=== PATIENT | female | born 1940 | race Caucasian/White ===

== ENCOUNTER 2023-01-22 16:10 | Inpatient (IN) ==
[2023-01-22] MEDS ORDERED: IOPAMIDOL 100 ML BOTTLE IV ONE (16:11)
--- NOTE | 2023-01-22 16:19 | Emergency Department Note ---
HPI General Chief complaint: Stroke Symptoms Stated complaint: possible stroke Time Seen by Provider: 01/22/23 16:19 History of Present Illness HPI Narrative: Narrative: Patient is an 82-year-old female with a past medical history significant for stroke who presents to the emergency department due to concern that she is having a stroke. She states that she began to have tingling last night at 8:30 PM. She woke up this morning with weakness. She states that this weakness was initially just in the left leg, but throughout the day she has begun to develop weakness in the left arm as well. She also endorses change in sensation on the left at this time. She denies any other symptoms at this time. Related Data Home Medications Medication Instructions Recorded Confirmed Lactobacillus acidophilus 10 10,000,000,000 cell PO QDAY 01/22/23 01/22/23 billion cell capsule (Probiotic) acetaminophen 500 mg tablet 1,000 mg PO Q6HP PRN Pain 01/22/23 01/22/23 (Acetaminophen Extra Strength) alendronate 70 mg tablet 70 mg PO WEEKLY 01/22/23 01/22/23 aspirin 81 mg tablet,delayed 81 mg PO QDAY 01/22/23 01/22/23 release (Adult Low Dose Aspirin) atorvastatin 40 mg tablet 40 mg PO QDAY 01/22/23 01/22/23 calcium carbonate 600 mg calcium 600 mg PO BID 01/22/23 01/22/23 (1,500 mg) tablet (Calcium) cholecalciferol (vitamin D3) 25 25 mcg PO BID 01/22/23 01/22/23 mcg (1,000 unit) tablet (Vitamin D3) famotidine 20 mg tablet 20 mg PO BID 01/22/23 01/22/23 furosemide 20 mg tablet 40 mg PO QDAY 01/22/23 01/22/23 hydrocodone 5 mg-acetaminophen 325 1 tab PO Q4HP PRN Pain 01/22/23 01/22/23 mg tablet levothyroxine 112 mcg tablet 112 mcg PO DAILY 01/22/23 01/22/23 loratadine 10 mg tablet (Claritin) 10 mg PO QDAY 01/22/23 01/22/23 lorazepam 0.5 mg tablet 1 mg PO BIDP PRN Anxiety 01/22/23 01/22/23 zonisamide 100 mg capsule 300 mg PO QPM 01/22/23 01/22/23 Allergies Allergy/AdvReac Type Severity Reaction Status Date / Time Buspirone Allergy Verified 01/22/23 21:12 dicyclomine [From Bentyl] Allergy Verified 01/22/23 21:12 gabapentin Allergy Verified 01/22/23 21:12 lansoprazole Allergy Verified 01/22/23 21:12 Penicillins Allergy Verified 01/22/23 21:12 phenytoin Allergy Verified 01/22/23 21:12 sertraline Allergy Verified 01/22/23 21:12 [id number] Reductase Allergy Verified 01/22/23 21:12 Inhibitor sucralfate Allergy Verified 01/22/23 21:12 trazodone Allergy Verified 01/22/23 21:12 Isorbide dinitrate Allergy Uncoded 01/22/23 16:30 Review of Systems ROS ROS Narrative: Narrative: Constitutional: Reports weakness (Left-sided); Denies fever Eyes: Denies eye pain or vision change ENT ED: Denies throat pain or rhinorrhea Cardiovascular: Denies chest pain, palpitations or edema Respiratory: Denies shortness of breath or cough Gastrointestinal: Denies abdominal pain, nausea, vomiting, diarrhea, constipation, hematochezia or melena Musculoskeletal: Denies back pain or myalgia Integumentary: Denies rash or lesions Neurological: Reports weakness (Left-sided) and numbness; Denies headache, confusion or dizziness PFSH Narrative Patient History Narrative: Narrative: Medical/Surgical/Family History All Active Problems (Updated 01/24/23 @ 09:11 by Hakeem Yeh MD) Numbness (Acute) Acute left-sided weakness (Acute) Exam Narrative Narrative: Narrative: General General appearance: Present alert and in no apparent distress; Absent anxious, appears intoxicated or sleepy Head Head: Present atraumatic and normocephalic Eye Eye: Present PERRL, EOMI and visual mack intact; Absent scleral icterus or nystagmus ENT ENT: Present mucous membranes moist; Absent nasal congestion Neck Neck: Present full ROM and trachea midline Chest Chest: Present normal inspection and symmetric chest wall rise Respiratory Respiratory: Present normal lung sounds bilaterally; Absent respiratory distress, rales/crackles, wheezes, stridor or accessory muscle use Cardiovascular Cardiovascular: Present regular rate, normal rhythm and normal heart sounds Adbominal Abdominal: Present soft; Absent distention Extremities Extremities: Present normal inspection and full ROM; Absent pedal edema or pretibial edema Back Back: Present normal inspection and full ROM Neurological Neurological: Present alert, oriented X3, CN II-XII intact, motor sensory deficit (Left upper and lower extremity drift, decreased sensation in left face, left upper extremity, and left lower extremity), reflexes normal and other (NIH: 3) Psychiatric Psychiatric: Present normal affect and normal mood Skin Skin: Present warm (WNL), dry and normal color Course Vital Signs Vital signs: Vital Signs Temperature 97.5 F 01/22/23 16:18 Pulse Rate 74 01/22/23 16:18 Respiratory Rate 19 01/22/23 16:18 Blood Pressure 139/74 01/22/23 16:18 Pulse Oximetry (%) 99 01/22/23 16:18 Oxygen Delivery Method Room Air 01/22/23 16:18 Temperature 97.2 F 01/24/23 04:44 Pulse Rate 52 L 01/24/23 04:44 Respiratory Rate 15 01/24/23 04:44 Blood Pressure 124/60 01/24/23 04:44 Pulse Oximetry (%) 99 01/24/23 04:44 Oxygen Delivery Method Room Air 01/23/23 23:41 MDM MDM Narrative Medical decision making narrative: Narrative: Patient is an 82-year-old female who presents to the emergency department due to change in sensation and weakness to the left side. Because this did start within the last 24 hours a stroke alert was called. I did speak to the teleneurologist who did not feel it was likely the patient had LVO. Patient is outside of the 4 and half hour window for TNKase. CT head does not demonstrate acute intracranial finding. Labs are reassuring overall. CT angio head and neck do not demonstrate LVO. I have spoken with Dr. Garner who has agreed to see and evaluate patient for admission for completion of stroke work-up. Lab Data 01/22/23 17:22 01/23/23 05:28 Labs: Lab Results 01/22/23 01/22/23 01/22/23 Range/Units 17:22 17:22 17: WBC 6.6 (4.5-11.0) K/mcL RBC 4.17 (3.59-5.38) M/mcL Hgb 13.2 (11.2-15.7) g/dL Hct 40.1 (34.1-44.9) % POC Hct (36-48) MCV 96.2 (80.0-100.0) fL MCH 31.7 (26.0-34.0) pg MCHC 32.9 (31.0-36.0) g/dL RDW 13.6 (11.5-14.5) % Plt Count 199 (140-440) K/mcL MPV 9.8 (8.8-12.5) fL Immature Gran % (Auto) 0.3 (0.0-0.5) % Neut % (Auto) 50.1 (38.0-78.0) % Lymph % (Auto) 36.9 (15.5-49.0) % [place] % (Auto) 10.4 (1.0-12.0) % Eos % (Auto) 1.2 (0.0-7.0) % Baso % (Auto) 1.1 (0.0-2.0) % Lymph # (Auto) 2.44 (1.50-4.80) K/mcL [place] # (Auto) 0.69 (0.10-0.90) K/mcL Eos # (Auto) 0.08 (0.00-0.70) K/mcL Baso # (Auto) 0.07 (0.00-0.30) K/mcL Immature Gran # 0.02 (0.00-0.05) K/mcl Absolute Neutrophils 3.32 (1.80-8.00) K/mcL POC PT (11.9-14.5) POC INR (0.8-1.2) APTT 27.8 (20.0-37.0) sec POC Sodium (133-145) POC Potassium (3.3-5.1) POC Chloride (96-108) POC Total CO2 (22-30) POC BUN (6-20) POC Creatinine (0.6-1.2) POC Glucose (70-105) POC WB Ioniz Calcium (1.16-1.32) Total Bilirubin 0.3 (0.1-1.0) mg/dL Direct Bilirubin < 0.2 (0-0.3) mg/dL AST 23 (<32) U/L ALT 17 (<40) U/L Alkaline Phosphatase 67 (39-117) U/L Total Protein 6.8 (5.9-8.4) gm/dL Albumin 3.9 (3.2-5.2) gm/dL Globulin 2.9 (2.2-3.7) gm/dL Triglycerides (<150) mg/dL Cholesterol (<200) mg/dL LDL Cholesterol, Calc (<100) mg/dL Non-HDL Cholesterol (<130) mg/dL HDL Cholesterol (>40) mg/dL Urine Color Urine Appearance (Clear) Urine pH (5.0-9.0) Ur Specific [place] (1.000-1.035) Urine Protein (Negative) mg/dL Urine Glucose (UA) (Negative) mg/dL Urine Ketones (Negative) mg/dL Urine Occult Blood (Negative) mg/dL Urine Nitrate (Negative) Urine Bilirubin (Negative) mg/dL Urine Urobilinogen mg/dL Ur Leukocyte Esterase (Negative) /uL Urine RBC (0-3) /hpf Urine WBC (0-4) /hpf Ur Squamous Epith Cells (0-4) /hpf Urine Bacteria (0) /hpf Urine Mucus (None) /hpf Ur Culture Indicated? POC Troponin I (0.00-0.08) 01/22/23 01/22/23 01/22/23 Range/Units 17:22 17:34 17:35 WBC (4.5-11.0) K/mcL RBC (3.59-5.38) M/mcL Hgb (11.2-15.7) g/dL Hct (34.1-44.9) % POC Hct 39.0 (36-48) MCV (80.0-100.0) fL MCH (26.0-34.0) pg MCHC (31.0-36.0) g/dL RDW (11.5-14.5) % Plt Count (140-440) K/mcL MPV (8.8-12.5) fL Immature Gran % (Auto) (0.0-0.5) % Neut % (Auto) (38.0-78.0) % Lymph % (Auto) (15.5-49.0) % [place] % (Auto) (1.0-12.0) % Eos % (Auto) (0.0-7.0) % Baso % (Auto) (0.0-2.0) % Lymph # (Auto) (1.50-4.80) K/mcL [place] # (Auto) (0.10-0.90) K/mcL Eos # (Auto) (0.00-0.70) K/mcL Baso # (Auto) (0.00-0.30) K/mcL Immature Gran # (0.00-0.05) K/mcl Absolute Neutrophils (1.80-8.00) K/mcL POC PT (11.9-14.5) POC INR (0.8-1.2) APTT (20.0-37.0) sec POC Sodium 141 (133-145) POC Potassium 3.5 (3.3-5.1) POC Chloride 108 (96-108) POC Total CO2 22.0 (22-30) POC BUN 17 (6-20) POC Creatinine 1.0 (0.6-1.2) POC Glucose 92 (70-105) POC WB Ioniz Calcium 1.20 (1.16-1.32) Total Bilirubin (0.1-1.0) mg/dL Direct Bilirubin (0-0.3) mg/dL AST (<32) U/L ALT (<40) U/L Alkaline Phosphatase (39-117) U/L Total Protein (5.9-8.4) gm/dL Albumin (3.2-5.2) gm/dL Globulin (2.2-3.7) gm/dL Triglycerides 120 (<150) mg/dL Cholesterol 127 (<200) mg/dL LDL Cholesterol, Calc 42 (<100) mg/dL Non-HDL Cholesterol 65 (<130) mg/dL HDL Cholesterol 62 (>40) mg/dL Urine Color Urine Appearance (Clear) Urine pH (5.0-9.0) Ur Specific [place] (1.000-1.035) Urine Protein (Negative) mg/dL Urine Glucose (UA) (Negative) mg/dL Urine Ketones (Negative) mg/dL Urine Occult Blood (Negative) mg/dL Urine Nitrate (Negative) Urine Bilirubin (Negative) mg/dL Urine Urobilinogen mg/dL Ur Leukocyte Esterase (Negative) /uL Urine RBC (0-3) /hpf Urine WBC (0-4) /hpf Ur Squamous Epith Cells (0-4) /hpf Urine Bacteria (0) /hpf Urine Mucus (None) /hpf Ur Culture Indicated? POC Troponin I < 0.02 (0.00-0.08) 01/22/23 01/22/23 Range/Units 17:40 17:54 WBC (4.5-11.0) K/mcL RBC (3.59-5.38) M/mcL Hgb (11.2-15.7) g/dL Hct (34.1-44.9) % POC Hct (36-48) MCV (80.0-100.0) fL MCH (26.0-34.0) pg MCHC (31.0-36.0) g/dL RDW (11.5-14.5) % Plt Count (140-440) K/mcL MPV (8.8-12.5) fL Immature Gran % (Auto) (0.0-0.5) % Neut % (Auto) (38.0-78.0) % Lymph % (Auto) (15.5-49.0) % [place] % (Auto) (1.0-12.0) % Eos % (Auto) (0.0-7.0) % Baso % (Auto) (0.0-2.0) % Lymph # (Auto) (1.50-4.80) K/mcL [place] # (Auto) (0.10-0.90) K/mcL Eos # (Auto) (0.00-0.70) K/mcL Baso # (Auto) (0.00-0.30) K/mcL Immature Gran # (0.00-0.05) K/mcl Absolute Neutrophils (1.80-8.00) K/mcL POC PT 14.4 (11.9-14.5) POC INR 1.2 (0.8-1.2) APTT (20.0-37.0) sec POC Sodium (133-145) POC Potassium (3.3-5.1) POC Chloride (96-108) POC Total CO2 (22-30) POC BUN (6-20) POC Creatinine (0.6-1.2) POC Glucose (70-105) POC WB Ioniz Calcium (1.16-1.32) Total Bilirubin (0.1-1.0) mg/dL Direct Bilirubin (0-0.3) mg/dL AST (<32) U/L ALT (<40) U/L Alkaline Phosphatase (39-117) U/L Total Protein (5.9-8.4) gm/dL Albumin (3.2-5.2) gm/dL Globulin (2.2-3.7) gm/dL Triglycerides (<150) mg/dL Cholesterol (<200) mg/dL LDL Cholesterol, Calc (<100) mg/dL Non-HDL Cholesterol (<130) mg/dL HDL Cholesterol (>40) mg/dL Urine Color Straw Urine Appearance Clear (Clear) Urine pH 7.0 (5.0-9.0) Ur Specific [place] 1.006 (1.000-1.035) Urine Protein Negative (Negative) mg/dL Urine Glucose (UA) Negative (Negative) mg/dL Urine Ketones Negative (Negative) mg/dL Urine Occult Blood Negative (Negative) mg/dL Urine Nitrate Negative (Negative) Urine Bilirubin Negative (Negative) mg/dL Urine Urobilinogen Negative mg/dL Ur Leukocyte Esterase 25 A (Negative) /uL Urine RBC < 1 (0-3) /hpf Urine WBC 4 (0-4) /hpf Ur Squamous Epith Cells 0 (0-4) /hpf Urine Bacteria None (0) /hpf Urine Mucus Few A (None) /hpf Ur Culture Indicated? No POC Troponin I (0.00-0.08) EKG Data EKG #1: EKG attestation: Yes I reviewed and interpreted this EKG. EKG results narrative: Sinus bradycardia with a rate of 52, normal axis, LA of 180, QRS of 106, QTc of 414, T wave flattening in lead III, and absence of ST elevation or depression. Discharge Plan Patient/Caregiver Discharge Instructions Pt seen by FRINGING MACHINE OPERATOR/PA only: No Clinical Impression: Numbness, Acute left-sided weakness Patient Disposition: Xfer As Inpt ([facility]) Discharge Date/Time: 01/22/23 20:52
--- NOTE | 2023-01-22 16:48 | Cat Scan Report ---
History: Neurologic deficit, possible stroke TECHNIQUE: The brain was imaged without contrast in axial plane at 2.5 mm intervals. Sagittal and coronal reformats were created. The radiation exposure was limited using dose reduction technology. FINDINGS: There is mild to moderate bilateral frontal lobe atrophy with milder involvement in the temporal lobes. Subtle areas of decreased attenuation are present in the centrum semiovale in the frontal and parietal lobes, most apparent in the frontal lobes. These are chronic findings, unchanged from the prior brain MRI done on 12/31/21. There is no evidence of an infarct. No hemorrhage or mass effect are present. The ventricles are normal in size. No abnormal extra-axial fluid collection is present. Bone windows show no skull lesion. There is opacification of one of the right posterior ethmoid air cells and mucosal thickening along the jimenez of a couple left-sided ethmoids. Visualized portions of the orbits are normal. IMPRESSION: Age-related degenerative changes with mild atrophy and mild white matter ischemia or degeneration in the frontal and parietal lobes. No acute abnormality Dr. Yeh was called with the report Interpreted and Authenticated by: Taiwo Bustillo 01/22/23
[2023-01-22 17:41] LABS: POC Calcium, Ionized 1.2 (1.16-1.32); POC Potassium 3.5 (3.3-5.1)
[2023-01-22 17:43] LABS: POC INR 1.2 (0.8-1.2); POC Pro Time 14.4 (11.9-14.5)
[2023-01-22 18:11] LABS: Basophils # (Auto) 0.07 K/mcL (0.00-0.30); Basophils % (Auto) 1.1 % (0.0-2.0); Eosinophils # (Auto) 0.08 K/mcL (0.00-0.70); Eosinophils % (Auto) 1.2 % (0.0-7.0); Hematocrit 40.1 % (34.1-44.9); Hemoglobin 13.2 g/dL (11.2-15.7); Lymphocytes # (Auto) 2.44 K/mcL (1.50-4.80); Lymphocytes % (Auto) 36.9 % (15.5-49.0); Mean Cell Volume 96.2 fL (80.0-100.0); Mean Corpuscular HGB Conc 32.9 g/dL (31.0-36.0); Mean Platelet Volume 9.8 fL (8.8-12.5); Monocytes # (Auto) 0.69 K/mcL (0.10-0.90); Monocytes % (Auto) 10.4 % (1.0-12.0); Neutrophils % (Auto) 50.1 % (38.0-78.0); Platelet Count 199 K/mcL (140-440); RBC 4.17 M/mcL (3.59-5.38); Red Cell Distribution Width 13.6 % (11.5-14.5); WBC 6.6 K/mcL (4.5-11.0)
[2023-01-22 18:24] LABS: Appearance,Urine CLEAR (Clear); Bilirubin,Urine Negative (Negative); Color,Urine STRAW; Culture Indicated,Urine No; Glucose,Urine (UA) Negative (Negative); Ketones,Urine Negative (Negative); Leukocyte Esterase,Urine 25 /uL (Negative); Mucus,Urine FEW /hpf; Nitrate,Urine Negative (Negative); Protein,Urine Negative (Negative); Specific Gravity,Urine 1.006 (1.000-1.035); Urine Blood Negative (Negative); Urine RBC < 1 /hpf (0-3); Urine Squamous Epithelial Cell 0 /hpf (0-4); Urine WBC 4 /hpf (0-4); Urobilinogen,Urine Negative
[2023-01-22 18:26] LABS: ALT/SGPT 17 U/L (<40); AST/SGOT 23 U/L (<32); Albumin 3.9 gm/dL (3.2-5.2); Alkaline Phosphatase 67 U/L (39-117); Bilirubin,Direct < 0.2 mg/dL (0-0.3); Bilirubin,Total 0.3 mg/dL (0.1-1.0); Globulin 2.9 gm/dL (2.2-3.7)
--- NOTE | 2023-01-22 18:30 | Cat Scan Report ---
History: Acute neurologic deficits, possible stroke TECHNIQUE: Following injection of intravenous nonionic contrast, arterial phase images were acquired from the ascending aorta to the top of the head. Sagittal, coronal and 3-D images were created. The radiation exposure was limited using dose reduction technology. FINDINGS: NECK: The aortic arch is normal in caliber. There are small plaques along the top of the arch. There is no stenosis at the origin of the great vessels. No aneurysm or dissection are present. There is a small eccentric plaque along the wall of the distal left common carotid, and the origin of the external carotid. No other plaque is present in either carotid artery. The carotid bifurcations are normal with no stenosis or thrombosis. There is no dissection. The vertebral arteries are normal and symmetric. There is arthritis in the neck and mild disc degeneration at C4-5 and C5-6. Brain: The petrous and cavernous portions of both internal carotids are normal. There are few small eccentric calcified plaques in the cavernous carotids. These are not causing stenosis. The supraclinoid internal carotids are normal. The anterior and middle cerebral arteries are normal. The vertebral and basilar arteries are normal. Posterior fossa circulation is normal. The anterior and posterior communicating arteries are small but patent. No intravascular thrombosis or stenosis is present. There is no evidence of vasculitis or vascular malformation. There is no aneurysm. No enhancing lesion is seen. IMPRESSION: Normal CT angiogram of the head and neck Dr. Yeh was called with the report Interpreted and Authenticated by: Taiwo Bustillo 01/22/23
--- NOTE | 2023-01-22 19:03 | Internal Med History&Physical ---
HPI History of Present Illness Patient information: Note initiated : 01/22/23 at 6:55 pm Service Date, if different from initiated Date: [] Patient: Heide Baez a 82 y/o F admitted on for possible stroke. Chief Complaint: [] History of present illness: Ms. Baez is a 82 year old F Presents to the ED with left-sided weakness. Patient states that last night she developed tingling in her left side. It went mostly went away before bedtime. This morning she was coming down the stairs and she did mention to her daughter that she could hardly lift her left leg. Throughout the day it seems to become worse and as well as developing left arm weakness. she c/o numbess to Left side of face. No speech difficulty. she also complains of numbness on the inside of her cheek Per her daughter she has had mini strokes in the past that left her with short- term memory issues. She also complains of headaches and some nausea she does occasional diarrhea. She does say she did have some blurry vision at 1 point. No recent illnesses. Work-up in the ED revealed a normal vital signs. She had a CT of the head which showed atrophy bilateral frontal lobes and milder and temporal, and mild white matter chronic ischemic changes. EKG sinus. Case was discussed with stroke neurologist. Review of Systems: Pertinent positives as above. Denies fever/chills/vomiting/chest or abdominal pain/cough/dyspnea. Remaining 10 point review of system reviewed negative PHYSICAL EXAM General: Alert, Awake, No acute Distress, obese Eyes/N/T: EOMI, no scleral icterus, PERRL, dry MM Head/Neck: neck supple, full ROM, normocephalic atraumatic CV: RRR, No murmurs, normal s1/s2 Pulm: Clear b/l, no wheezing/rhonchi/rales, no respiratory distress Abd: soft, nontender, +BS x4 Ext: no clubbing/cyanosis, mild b/l LE edema, nontender Neuro: Alert, speech clear no slurring, positive pronator drift on left, left upper extremity weakness and left lower extremity weakness. Decreased sensation the left side of the face. Face is symmetrical with no drooping Psychiatric: Skin: warm/dry, normal color PFSH PFSH Social History smoking status: Unknown if ever smoked MEDS/ALLERGIES Home Medications and Allergies Allergies Allergy/AdvReac Type Severity Reaction Status Date / Time Buspirone Allergy Verified 01/22/23 16:30 dicyclomine [From Bentyl] Allergy Verified 01/22/23 16:30 gabapentin Allergy Verified 01/22/23 16:30 lansoprazole Allergy Verified 01/22/23 16:30 Penicillins Allergy Verified 01/22/23 16:30 phenytoin Allergy Verified 01/22/23 16:30 sertraline Allergy Verified 01/22/23 16:30 Tofkigu-HAG-BlC Reductase Allergy Verified 01/22/23 16:30 Inhibitor sucralfate Allergy Verified 01/22/23 16:30 trazodone Allergy Verified 01/22/23 16:30 Isorbide dinitrate Allergy Uncoded 01/22/23 16:30 EXAM Constitutional Vitals: Temp Pulse Resp BP Pulse Ox O2 Del Method 97.5 F 55 L 17 120/55 97 Room Air 01/22/23 16:18 01/22/23 18:46 01/22/23 18:46 01/22/23 18:46 01/22/23 18:46 01/22/23 16:18 DATA Data Completed and Pending Labs: Labs from last 24 hours 01/22/23 01/22/23 01/22/23 17:54 17:40 17:35 WBC RBC Hgb Hct POC Hct 39.0 MCV MCH MCHC RDW Plt Count MPV Immature Gran % (Auto) Neut % (Auto) Lymph % (Auto) [place] % (Auto) Eos % (Auto) Baso % (Auto) Lymph # (Auto) [place] # (Auto) Eos # (Auto) Baso # (Auto) Immature Gran # Absolute Neutrophils POC PT 14.4 POC INR 1.2 APTT POC Sodium 141 POC Potassium 3.5 POC Chloride 108 POC Total CO2 22.0 POC BUN 17 POC Creatinine 1.0 POC Glucose 92 POC WB Ioniz Calcium 1.20 Total Bilirubin Direct Bilirubin AST ALT Alkaline Phosphatase Total Protein Albumin Globulin Urine Color Straw Urine Appearance Clear Urine pH 7.0 Ur Specific [place] 1.006 Urine Protein Negative Urine Glucose (UA) Negative Urine Ketones Negative Urine Occult Blood Negative Urine Nitrate Negative Urine Bilirubin Negative Urine Urobilinogen Negative Ur Leukocyte Esterase 25 A Urine RBC < 1 Urine WBC 4 Ur Squamous Epith Cells 0 Urine Bacteria None Urine Mucus Few A Ur Culture Indicated? No POC Troponin I 01/22/23 01/22/23 01/22/23 17:34 17:22 17:22 WBC RBC Hgb Hct POC Hct MCV MCH MCHC RDW Plt Count MPV Immature Gran % (Auto) Neut % (Auto) Lymph % (Auto) [place] % (Auto) Eos % (Auto) Baso % (Auto) Lymph # (Auto) [place] # (Auto) Eos # (Auto) Baso # (Auto) Immature Gran # Absolute Neutrophils POC PT POC INR APTT 27.8 POC Sodium POC Potassium POC Chloride POC Total CO2 POC BUN POC Creatinine POC Glucose POC WB Ioniz Calcium Total Bilirubin 0.3 Direct Bilirubin < 0.2 AST 23 ALT 17 Alkaline Phosphatase 67 Total Protein 6.8 Albumin 3.9 Globulin 2.9 Urine Color Urine Appearance Urine pH Ur Specific [place] Urine Protein Urine Glucose (UA) Urine Ketones Urine Occult Blood Urine Nitrate Urine Bilirubin Urine Urobilinogen Ur Leukocyte Esterase Urine RBC Urine WBC Ur Squamous Epith Cells Urine Bacteria Urine Mucus Ur Culture Indicated? POC Troponin I < 0.02 01/22/23 17:22 WBC 6.6 RBC 4.17 Hgb 13.2 Hct 40.1 POC Hct MCV 96.2 MCH 31.7 MCHC 32.9 RDW 13.6 Plt Count 199 MPV 9.8 Immature Gran % (Auto) 0.3 Neut % (Auto) 50.1 Lymph % (Auto) 36.9 [place] % (Auto) 10.4 Eos % (Auto) 1.2 Baso % (Auto) 1.1 Lymph # (Auto) 2.44 [place] # (Auto) 0.69 Eos # (Auto) 0.08 Baso # (Auto) 0.07 Immature Gran # 0.02 Absolute Neutrophils 3.32 POC PT POC INR APTT POC Sodium POC Potassium POC Chloride POC Total CO2 POC BUN POC Creatinine POC Glucose POC WB Ioniz Calcium Total Bilirubin Direct Bilirubin AST ALT Alkaline Phosphatase Total Protein Albumin Globulin Urine Color Urine Appearance Urine pH Ur Specific [place] Urine Protein Urine Glucose (UA) Urine Ketones Urine Occult Blood Urine Nitrate Urine Bilirubin Urine Urobilinogen Ur Leukocyte Esterase Urine RBC Urine WBC Ur Squamous Epith Cells Urine Bacteria Urine Mucus Ur Culture Indicated? 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
[2023-01-22] MEDS ORDERED: CLOPIDOGREL 300 MG TABLET PO ONE (19:27)
[2023-01-22] MEDS ORDERED: ASPIRIN 81 MG TAB.CHEW CHEWED ONE (19:27)
[2023-01-22] MEDS ORDERED: MAGNESIUM SULFATE 2 GM/50 ML BAG IV PRN (21:00)
[2023-01-22] MEDS ORDERED: SENNOSIDES 1 TABLET PO PRN (21:00)
[2023-01-22] MEDS ORDERED: ONDANSETRON 4 MG/2 ML VIAL IV PRN (21:00)
[2023-01-22] MEDS ORDERED: POTASSIUM CHLORIDE 40 MEQ in DEXTROSE 5% IN WATER 500 ML IV PRN (21:00)
[2023-01-22] MEDS ORDERED: POLYETHYLENE GLYCOL 3350 17 GM PACKET PO PRN (21:00)
[2023-01-22] MEDS ORDERED: POTASSIUM CHLORIDE 20 MEQ TABLET PO PRN ×2 (21:00)
[2023-01-22] MEDS ORDERED: IPRATROPIUM/ALBUTEROL 3 ML AMPUL.NEB NEB PRN (21:00)
[2023-01-22] MEDS ORDERED: LORazepam 2 MG/ML VIAL IV PRN ×2 (21:00)
[2023-01-22 21:22] LABS: HDL Cholesterol 62 mg/dL (>40); LDL Cholesterol,Calculated 42 mg/dL (<100); Non-HDL Cholesterol 65 mg/dL (<130); Triglycerides 120 mg/dL (<150)
[2023-01-22] MEDS: 0.9 % SODIUM CHLORIDE 1,000 ML IV SCH (21:38)
[2023-01-22] MEDS: ACETAMINOPHEN 325 MG TABLET PO PRN (21:38)
[2023-01-22] MEDS: 0.9 % SODIUM CHLORIDE 10 ML SYRINGE IV SCH (21:39)
[2023-01-22] MEDS: DOCUSATE SODIUM 100 MG CAPSULE PO SCH (22:08)
[2023-01-22] MEDS: ATORVASTATIN 40 MG TABLET PO SCH (22:08)
[2023-01-23] MEDS: 0.9 % SODIUM CHLORIDE 10 ML SYRINGE IV SCH ×3 (05:38→22:00)
[2023-01-23] MEDS: 0.9 % SODIUM CHLORIDE 1,000 ML IV SCH (06:22)
[2023-01-23 07:02] LABS: ALT/SGPT 14 U/L (<40); AST/SGOT 20 U/L (<32); Albumin 3.5 gm/dL (3.2-5.2); Albumin/Globulin Ratio 1.5 (1.0-2.3); Alkaline Phosphatase 59 U/L (39-117); Bilirubin,Direct < 0.2 mg/dL (0-0.3); Bilirubin,Total 0.4 mg/dL (0.1-1.0); Blood Urea Nitrogen 10 mg/dL (8-23); Calcium 8.4 mg/dL (8.6-10.4); Carbon Dioxide 20 mmol/L (22-30); Chloride 114 mmol/L (96-108); Globulin 2.4 gm/dL (2.2-3.7); Glomerular Filtration Rate 69; Glucose 82 mg/dL (70-105); Lactate Dehydrogenase 192 U/L (135-225); Phosphorous 2.7 mg/dL (2.5-4.5); Triglycerides 85 mg/dL (<150); Uric Acid 5.8 mg/dL (2.5-8.0)
--- NOTE | 2023-01-23 07:14 | Internal Med Progress Note ---
SUBJECTIVE Subjective Patient information: Note initiated : 01/23/23 at 7:12 am Service Date, if different from initiated Date: [] Patient: Heide Baez a 82 y/o F admitted on 01/22/23 for possible stroke- Left Hemiparesis Strokelike . Chief Complaint: [] Interval history: History of present illness: Ms. Baez is a 82 year old F Presents to the ED with left-sided weakness. Patient states that last night she developed tingling in her left side. It went mostly went away before bedtime. This morning she was coming down the stairs and she did mention to her daughter that she could hardly lift her left leg. Throughout the day it seems to become worse and as well as developing left arm weakness. she c/o numbess to Left side of face. No speech difficulty. she also complains of numbness on the inside of her cheek Per her daughter she has had mini strokes in the past that left her with short- term memory issues. She also complains of headaches and some nausea she does occasional diarrhea. She does say she did have some blurry vision at 1 point. No recent illnesses. Work-up in the ED revealed a normal vital signs. She had a CT of the head which showed atrophy bilateral frontal lobes and milder and temporal, and mild white matter chronic ischemic changes. EKG sinus. Case was discussed with stroke neurologist. 01/23 Patient states she had poor sleep last night. Has a bit of a headache. She feels her symptoms have mildly improved. Patient does states she does take aspirin daily.. Review of Systems: Pertinent positives as above. Denies fever/chills/vomiting/chest or abdominal pain/cough/dyspnea. PHYSICAL EXAM General: Alert, Awake, No acute Distress, obese Eyes/N/T: EOMI, no scleral icterus, Head/Neck: neck supple, full ROM, CV: RRR, No murmurs, Pulm: Clear b/l, no wheezing/rhonchi/rales, no respiratory distress Abd: soft, nontender, +BS x4 Ext: no clubbing/cyanosis, mild b/l LE edema, nontender Neuro: Alert, speech clear no slurring, positive pronator drift on left, left upper extremity weakness < than left lower extremity weakness. Decreased sensation the left side of the face.All symptoms mildly improved today. Face is symmetrical with no drooping Psychiatric: Skin: warm/dry, normal color Constitutional Vitals: Vital Signs Temp Pulse Resp BP Pulse Ox O2 Del Method 96.8 F L 53 L 14 123/58 99 Room Air 01/23/23 03:33 01/23/23 06:00 01/23/23 06:00 01/23/23 06:00 01/23/23 06:00 01/22/23 21:40 Period Temp Pulse Resp BP Sys/Alston Pulse Ox O2 Del Method O2 Flow Rate Last 24 Hr 96.8 F-98.3 F 47-74 11-22 101-145/45-74 96-100 Room Air-Room Air Intake and Output 01/22/23 01/23/23 01/23/23 19:59 03:59 11:59 Intake Total 150 1000 Output Total 600 400 Balance -450 600 Weight 93.894 kg 96.388 kg Intake & Output: Intake & Output 01/22/23 01/23/23 01/23/23 19:59 03:59 11:59 Intake Total 150 1000 Output Total 600 400 Balance -450 600 Weight 93.894 kg 96.388 kg Intake: IV 1000 Sodium Chloride 0.9% 1,000 ml @ 1000 125 mls/hr IV .Q8H DAVID Rx#: [id number] Oral 150 Output: Void Amount 600 400 Other: Urine Appearance Clear Clear Urine Color Yellow Yellow Urine Odor Normal # Voids 1 OBJ DATA Labs 01/22/23 17:22 01/23/23 05:28 Labs: Abnormal Lab Results 01/23/23 01/22/23 05:28 17:54 Chloride 114 H Carbon Dioxide 20 L Calcium 8.4 L Ur Leukocyte Esterase 25 A Urine Mucus Few A Meds: Medications Acetaminophen (Acetaminophen 325 Mg Tablet) 650 mg PO Q6HP PRN; Protocol PRN Reason: Per Pain Protocol/Fever > 101 Last Admin: 01/22/23 21:38 Dose: 650 mg Hydrocodone Bitart/Acetaminophen (Hydrocodone/Apap 5/325mg Tablet) 1 tab PO Q4HP PRN; Protocol PRN Reason: Per Pain Protocol Albuterol/Ipratropium (Ipratropium/Albuterol 3 Ml Ampul.Neb) 3 ml NEB Q4HP PRN PRN Reason: Shortness Of Breath Aspirin (Aspirin 81 Mg Tab.Chew) 81 mg PO DAILY DAVID Atorvastatin Calcium (Atorvastatin 40 Mg Tablet) 80 mg PO [facility] Last Admin: 01/22/23 22:08 Dose: Not Given Clopidogrel Bisulfate (Clopidogrel 75 Mg Tablet) 75 mg PO DAILY [facility] Docusate Sodium (Docusate Sodium 100 Mg Capsule) 100 mg PO BID [facility] Last Admin: 01/22/23 22:08 Dose: Not Given Enoxaparin Sodium (Enoxaparin 40 Mg/0.4 Ml Syringe) 40 mg SQ DAILY [facility] Potassium Chloride 40 meq/ (Dextrose) 520 mls @ 130 mls/hr IV UD PRN PRN Reason: Potassium < 3 Magnesium Sulfate (Magnesium Sulfate) 2 gm in 50 mls @ 50 mls/hr IV UD PRN PRN Reason: Magnesium </= 1.6 Sodium Chloride (Sodium Chloride 0.9%) 1,000 mls @ 125 mls/hr IV .Q8H [facility] Stop: 01/23/23 12:59 Last Admin: 01/23/23 06:22 Dose: 125 mls/hr Lorazepam (Lorazepam 2 Mg/Ml Vial) 0.5 mg IV Q6HP PRN PRN Reason: ANXIETY/SEDATION Lorazepam (Lorazepam 2 Mg/Ml Vial) 2 mg IV Q2HP PRN PRN Reason: Seizure Activity Ondansetron HCl (Ondansetron 4 Mg/2 Ml Vial) 4 mg IV Q4HP PRN PRN Reason: Nausea And Vomiting Zonisamide 100 Mg (Capsule) 1 dose PO [facility] Polyethylene Glycol (Polyethylene Glycol 3350 17 Gm Packet) 17 gm PO DAILYP PRN PRN Reason: Constipation Potassium Chloride (Potassium Chloride 20 Meq Tablet) 40 meq PO UD PRN PRN Reason: Potssium is 3-3.5 Potassium Chloride (Potassium Chloride 20 Meq Tablet) 40 meq PO UD PRN PRN Reason: Potassium < 3 Senna (Sennosides 1 Tablet) 2 tab PO DAILYP PRN PRN Reason: Constipation Sodium Chloride (0.9 % Sodium Chloride 10 Ml Syringe) 10 ml IV Q8 [facility] Last Admin: 01/23/23 05:38 Dose: Not Given A/P Narrative A/P Narrative: A: *Strokelike symptoms, left-hemiparesis(Leg>Arm)/numbness: -ABCD=4 *h/o Sz d/o: on zonisamide, cont *Anxiety: prn ativan cont *Obesity: BMI 38, lifestyle modifications *Hypothyroidism: Continue levothyroxine *GERD: *Chronic pain: Hip and shoulder P: -IVF d/c -permissive HTN -DAPT. pt has been on daily asa 81mg, once DAPT period completed will keep plavix and stop asa -statin -echo and MRI pending -Neurochecks -cont home -PT/OT -CM for placement needs -ppx: lovenox / home H2 Time Spent With Patient Time: Total time spent is greater than 50% in coordination of care (as documented) at patient's floor/unit and/or counseling patient: Subsequent: Total time with patient: 35 - 49 minutes QUALITY Stroke Onset of Symptoms Date: 01/21/23 Onset of Symptoms Time: 20:30 Symptom Onset Unknown: Yes VTE Deep Vein Thrombosis/Pulmonary Embolism Present on Admission: No
[2023-01-23] MEDS: ACETAMINOPHEN 325 MG TABLET PO PRN (08:37)
[2023-01-23] MEDS: FAMOTIDINE 20 MG TABLET PO SCH ×2 (08:37→21:31)
[2023-01-23] MEDS: ENOXAPARIN 40 MG/0.4 ML SYRINGE SQ SCH (08:37)
[2023-01-23] MEDS: DOCUSATE SODIUM 100 MG CAPSULE PO SCH ×2 (08:37→21:32)
[2023-01-23] MEDS: CLOPIDOGREL 75 MG TABLET PO SCH (08:37)
[2023-01-23] MEDS: LACTOBACILLUS 1 CAPSULE PO SCH (08:37)
[2023-01-23] MEDS: ASPIRIN 81 MG TAB.CHEW PO SCH (08:37)
[2023-01-23] MEDS ORDERED: LORATADINE 10 MG TABLET PO PRN (10:07)
[2023-01-23] MEDS: LEVOTHYROXINE SODIUM 112 MCG TABLET PO SCH (10:51)
--- NOTE | 2023-01-23 11:36 | Magnetic Resonance Report ---
History: Acute stroke symptoms with left-sided weakness and tingling TECHNIQUE: Stroke protocol was performed. FINDINGS: There is no evidence of an infarct, hemorrhage or neoplasm. The T2 and FLAIR sequences reveal the presence of several small scattered high signal lesions in the centrum semiovale predominantly in the frontal and parietal lobes with milder involvement in the temporal and occipital lobes. These have no restricted diffusion or mass effect. No cortical lesion is present. There is mild atrophy, most apparent around the sylvian fissures. Ventricles are normal in size. Comparison with the preceding head CT shows no change. IMPRESSION: Mild age-related degenerative changes. No evidence of infarct or other acute abnormality Dr. Garner was called with the report Interpreted and Authenticated by: Taiwo Bustillo 01/23/23
--- NOTE | 2023-01-23 14:52 | EKG ---
[facility] Test Date: 2023-01-22 Pat Name: Heide Baez Department: ED Room: Gender: Female Lpn Care Manager: CS : [id number] Requested By: Hakeem Yeh Order Number: [id number] Reading MD: Edd Bustillo M.D. Measurements Intervals [place] Rate: 52 P: 60 MT: 180 QRS: 58 QRSD: 106 T: 33 QT: 445 QTc: 414 Interpretive Statements Sinus rhythm Abnormal R-wave progression, early transition Electronically Signed On 01-23-2023 14:52:23 PDT by Edd Bustillo M.D. /store/[email or web address]/[id number]
[2023-01-23] MEDS: HYDROcodone/APAP 5/325MG TABLET PO PRN ×3 (16:47→21:37)
[2023-01-23] MEDS ORDERED: NON FORMULARY MEDICATION 1 DOSE MISCELL PO SCH (21:00)
[2023-01-23] MEDS: ATORVASTATIN 40 MG TABLET PO SCH (21:31)
[2023-01-24] MEDS: 0.9 % SODIUM CHLORIDE 10 ML SYRINGE IV SCH ×3 (04:39→20:38)
[2023-01-24] MEDS: LEVOTHYROXINE SODIUM 112 MCG TABLET PO SCH (07:52)
[2023-01-24] MEDS: ENOXAPARIN 40 MG/0.4 ML SYRINGE SQ SCH (09:16)
[2023-01-24] MEDS: DOCUSATE SODIUM 100 MG CAPSULE PO SCH ×2 (09:16→20:37)
[2023-01-24] MEDS: ASPIRIN 81 MG TAB.CHEW PO SCH (09:16)
[2023-01-24] MEDS: FAMOTIDINE 20 MG TABLET PO SCH ×2 (09:16→20:37)
[2023-01-24] MEDS: CLOPIDOGREL 75 MG TABLET PO SCH (09:16)
[2023-01-24] MEDS: LACTOBACILLUS 1 CAPSULE PO SCH (09:16)
--- NOTE | 2023-01-24 16:02 | Internal Med Progress Note ---
SUBJECTIVE Subjective Patient information: Note initiated : 01/24/23 at 3:56 pm Service Date, if different from initiated Date: [] Patient: Heide Baez a 82 y/o F admitted on 01/22/23 for possible stroke- Left Hemiparesis Strokelike . Chief Complaint: [] Interval history: History of present illness: Ms. Baez is a 82 year old F Presents to the ED with left-sided weakness. Patient states that last night she developed tingling in her left side. It went mostly went away before bedtime. This morning she was coming down the stairs and she did mention to her daughter that she could hardly lift her left leg. Throughout the day it seems to become worse and as well as developing left arm weakness. she c/o numbess to Left side of face. No speech difficulty. she also complains of numbness on the inside of her cheek Per her daughter she has had mini strokes in the past that left her with short- term memory issues. She also complains of headaches and some nausea she does occasional diarrhea. She does say she did have some blurry vision at 1 point. No recent illnesses. Work-up in the ED revealed a normal vital signs. She had a CT of the head which showed atrophy bilateral frontal lobes and milder and temporal, and mild white matter chronic ischemic changes. EKG sinus. Case was discussed with stroke neurologist. 5/5 Patient states she had poor sleep last night. Has a bit of a headache. She feels her symptoms have mildly improved. Patient does states she does take aspirin daily. 5/6 Vital stable overnight, the patient's left-sided weakness has resolved. MRI brain from yesterday did not show acute stroke. The patient is back to her baseline. Awaiting placement at SNF for low intensity rehab. Physical exam Head: Atraumatic, normal inspection. Eyes: normal appearance, no scleral icterus. Neck: full ROM Respiratory: no respiratory distress. Cardiovascular: normal rate and rhythm, S1, S2. GI/Abdominal: soft, nontender, no guarding. Extremities: full range of motion, nontender. Neurological: CN II-XII intact, intact motor, intact sensation. Psychiatric: normal mood. Skin: warm, normal color Constitutional Vitals: Vital Signs Temp Pulse Resp BP Pulse Ox O2 Del Method 97.2 F 52 L 16 127/73 99 Room Air 01/24/23 13:40 01/24/23 04:44 01/24/23 13:55 01/24/23 13:40 01/24/23 13:40 01/24/23 13:40 Period Temp Pulse Resp BP Sys/Alston Pulse Ox O2 Del Method O2 Flow Rate Last 24 Hr 97.2 F-97.3 F 52-66 15-23 124-138/58-75 99-100 Room Air-Room Air Intake and Output 01/24/23 01/24/23 01/24/23 03:59 11:59 19:59 Intake Total 150 200 480 Output Total 400 301 1 Balance -250 -101 479 Weight 96.343 kg Intake & Output: Intake & Output 01/24/23 01/24/23 01/24/23 03:59 11:59 19:59 Intake Total 150 200 480 Output Total 400 301 1 Balance -250 -101 479 Weight 96.343 kg Intake: Oral 150 200 480 Output: Void Amount 400 300 # of times incontinent of urine 1 1 Other: Meal Breakfast Lunch Percent of Meal Consumed 100% 100% Feeding Ability Independent Independent Independent Urine Appearance Clear Clear Urine Color Yellow Yellow Pale Urine Odor Normal Stool Consistency Loose # Voids 1 # Bowel Movements 1 OBJ DATA Labs 01/22/23 17:22 01/23/23 05:28 Labs: Abnormal Lab Results 01/23/23 01/22/23 05:28 17:54 Chloride 114 H Carbon Dioxide 20 L Calcium 8.4 L Ur Leukocyte Esterase 25 A Urine Mucus Few A Meds: Medications Acetaminophen (Acetaminophen 325 Mg Tablet) 650 mg PO Q6HP PRN; Protocol PRN Reason: Per Pain Protocol/Fever > 101 Last Admin: 01/23/23 08:37 Dose: 650 mg Hydrocodone Bitart/Acetaminophen (Hydrocodone/Apap 5/325mg Tablet) 1 tab PO Q4HP PRN; Protocol PRN Reason: Per Pain Protocol Last Admin: 01/23/23 21:37 Dose: 1 tab Albuterol/Ipratropium (Ipratropium/Albuterol 3 Ml Ampul.Neb) 3 ml NEB Q4HP PRN PRN Reason: Shortness Of Breath Aspirin (Aspirin 81 Mg Tab.Chew) 81 mg PO DAILY DAVID Last Admin: 01/24/23 09:16 Dose: 81 mg Atorvastatin Calcium (Atorvastatin 40 Mg Tablet) 80 mg PO HS DAVID Last Admin: 01/23/23 21:31 Dose: 80 mg Clopidogrel Bisulfate (Clopidogrel 75 Mg Tablet) 75 mg PO DAILY [facility] Last Admin: 01/24/23 09:16 Dose: 75 mg Docusate Sodium (Docusate Sodium 100 Mg Capsule) 100 mg PO BID [facility] Last Admin: 01/24/23 09:16 Dose: Not Given Enoxaparin Sodium (Enoxaparin 40 Mg/0.4 Ml Syringe) 40 mg SQ DAILY [facility] Last Admin: 01/24/23 09:16 Dose: 40 mg Famotidine (Famotidine 20 Mg Tablet) 20 mg PO BID [facility] Last Admin: 01/24/23 09:16 Dose: 20 mg Potassium Chloride 40 meq/ (Dextrose) 520 mls @ 130 mls/hr IV UD PRN PRN Reason: Potassium < 3 Magnesium Sulfate (Magnesium Sulfate) 2 gm in 50 mls @ 50 mls/hr IV UD PRN PRN Reason: Magnesium </= 1.6 Lactobacillus Rhamnosus (Lactobacillus 1 Capsule) 1 cap PO DAILY [facility] Last Admin: 01/24/23 09:16 Dose: 1 cap Levothyroxine Sodium (Levothyroxine Sodium 112 Mcg Tablet) 112 mcg PO ACB [facility] Last Admin: 01/24/23 07:52 Dose: 112 mcg Loratadine (Loratadine 10 Mg Tablet) 10 mg PO DAILYP PRN PRN Reason: Allergic Symptoms Lorazepam (Lorazepam 2 Mg/Ml Vial) 0.5 mg IV Q6HP PRN PRN Reason: ANXIETY/SEDATION Lorazepam (Lorazepam 2 Mg/Ml Vial) 2 mg IV Q2HP PRN PRN Reason: Seizure Activity Ondansetron HCl (Ondansetron 4 Mg/2 Ml Vial) 4 mg IV Q4HP PRN PRN Reason: Nausea And Vomiting Zonisamide 100 Mg (Capsule) 1 dose PO [facility] Last Admin: 01/23/23 21:31 Dose: 1 dose Polyethylene Glycol (Polyethylene Glycol 3350 17 Gm Packet) 17 gm PO DAILYP PRN PRN Reason: Constipation Potassium Chloride (Potassium Chloride 20 Meq Tablet) 40 meq PO UD PRN PRN Reason: Potssium is 3-3.5 Last Admin: 01/23/23 10:46 Dose: 40 meq Potassium Chloride (Potassium Chloride 20 Meq Tablet) 40 meq PO UD PRN PRN Reason: Potassium < 3 Senna (Sennosides 1 Tablet) 2 tab PO DAILYP PRN PRN Reason: Constipation Sodium Chloride (0.9 % Sodium Chloride 10 Ml Syringe) 10 ml IV Q8 DAVID Last Admin: 01/24/23 04:39 Dose: 10 ml A/P Narrative A/P Narrative: Assessment: 82-year-old female with a history of seizure disorder admitted for left hemiparesis, work-up negative for acute stroke and the patient is now back to her baseline. The patient has had recurrent similar symptoms with varying degrees of severity. Suspect the patient's symptoms may be caused by seizures. *Resolved strokelike symptoms, left-hemiparesis(Leg>Arm)/numbness: -MRI brain negative for acute stroke -Multiple recurrent episodes of varying severity. -Concern for possible seizures causing the patient's recurrent episodes. *History of seizure: on zonisamide *Anxiety: prn ativan cont *Obesity: BMI 38, lifestyle modifications *Hypothyroidism: Continue levothyroxine *GERD: *Chronic pain: Hip and shoulder Plan: -Awaiting placement for low intensity rehab. -Continue DAPT. pt has been on daily asa 81mg, once DAPT period completed will keep plavix and stop asa -statin -Neurochecks -cont home -PT/OT -CM for placement needs -ppx: lovenox / home H2 -Disposition: Currently inpatient MedSurg awaiting placement. Outpatient referral for neurology with Dr. Baird at [facility]. Time Spent With Patient Time: Total time spent is greater than 50% in coordination of care (as documented) at patient's floor/unit and/or counseling patient: QUALITY Stroke Onset of Symptoms Date: 01/21/23 Onset of Symptoms Time: 20:30 Symptom Onset Unknown: Yes VTE Deep Vein Thrombosis/Pulmonary Embolism Present on Admission: No
[2023-01-24] MEDS: HYDROcodone/APAP 5/325MG TABLET PO PRN ×2 (17:21→22:11)
[2023-01-24] MEDS: ATORVASTATIN 40 MG TABLET PO SCH (20:37)
[2023-01-25] MEDS: 0.9 % SODIUM CHLORIDE 10 ML SYRINGE IV SCH ×5 (06:20→21:34)
[2023-01-25] MEDS ORDERED: LEVOTHYROXINE SODIUM 112 MCG TABLET PO SCH (07:30)
[2023-01-25] MEDS: LACTOBACILLUS 1 CAPSULE PO SCH (08:56)
[2023-01-25] MEDS: ASPIRIN 81 MG TAB.CHEW PO SCH (08:56)
[2023-01-25] MEDS: FAMOTIDINE 20 MG TABLET PO SCH ×2 (08:56→20:35)
[2023-01-25] MEDS: DOCUSATE SODIUM 100 MG CAPSULE PO SCH ×2 (08:57→20:35)
[2023-01-25] MEDS: ENOXAPARIN 40 MG/0.4 ML SYRINGE SQ SCH (08:57)
[2023-01-25] MEDS: CLOPIDOGREL 75 MG TABLET PO SCH (08:57)
--- NOTE | 2023-01-25 09:46 | Internal Med Progress Note ---
SUBJECTIVE Subjective Patient information: Note initiated : 01/25/23 at 9:43 am Service Date, if different from initiated Date: [] Patient: Heide Baez a 82 y/o F admitted on 01/22/23 for possible stroke- Left Hemiparesis Strokelike . Chief Complaint: [] Interval history: History of present illness: Ms. Baez is a 82 year old F Presents to the ED with left-sided weakness. Patient states that last night she developed tingling in her left side. It went mostly went away before bedtime. This morning she was coming down the stairs and she did mention to her daughter that she could hardly lift her left leg. Throughout the day it seems to become worse and as well as developing left arm weakness. she c/o numbess to Left side of face. No speech difficulty. she also complains of numbness on the inside of her cheek Per her daughter she has had mini strokes in the past that left her with short- term memory issues. She also complains of headaches and some nausea she does occasional diarrhea. She does say she did have some blurry vision at 1 point. No recent illnesses. Work-up in the ED revealed a normal vital signs. She had a CT of the head which showed atrophy bilateral frontal lobes and milder and temporal, and mild white matter chronic ischemic changes. EKG sinus. Case was discussed with stroke neurologist. 01/23 Patient states she had poor sleep last night. Has a bit of a headache. She feels her symptoms have mildly improved. Patient does states she does take aspirin daily. 01/24 Vital stable overnight, the patient's left-sided weakness has resolved. MRI brain from yesterday did not show acute stroke. The patient is back to her baseline. Awaiting placement at SNF for low intensity rehab. 01/25 Vitals stable overnight, review of telemetry shows short episodes of possible atrial fibrillation. Continuing nurse monitoring and EKG if monitoring suggests atrial fibrillation. Will discharge the patient with a referral for a longer- term nurse monitoring. Otherwise awaiting placement. Physical exam Head: Atraumatic, normal inspection. Eyes: normal appearance, no scleral icterus. Neck: full ROM Respiratory: no respiratory distress. Cardiovascular: normal rate and rhythm, S1, S2. GI/Abdominal: soft, nontender, no guarding. Extremities: full range of motion, nontender. Neurological: CN II-XII intact, intact motor, intact sensation. Psychiatric: normal mood. Skin: warm, normal color Constitutional Vitals: Vital Signs Temp Pulse Resp BP Pulse Ox O2 Del Method 97.6 F 47 L 18 115/66 99 Room Air 01/24/23 19:10 01/25/23 04:00 01/25/23 04:00 01/24/23 19:10 01/25/23 04:00 01/25/23 04:00 Period Temp Pulse Resp BP Sys/Alston Pulse Ox O2 Del Method O2 Flow Rate Last 24 Hr 97.2 F-98.2 F 47-66 16-20 115-144/66-73 98-100 Room Air-Room Air Intake and Output 01/24/23 01/25/23 01/25/23 19:59 03:59 11:59 Intake Total 680 Output Total 1 650 Balance 679 -650 Weight 97.114 kg Intake & Output: Intake & Output 01/24/23 01/25/23 01/25/23 19:59 03:59 11:59 Intake Total 680 Output Total 1 650 Balance 679 -650 Weight 97.114 kg Intake: Oral 680 Output: Void Amount 650 # of times incontinent of urine 1 Other: Meal Dinner Percent of Meal Consumed 100% Feeding Ability Independent Urine Appearance Clear Clear Urine Color Yellow Bright Yellow Urine Odor Normal Stool Consistency Loose # Voids 1 # Bowel Movements 1 OBJ DATA Labs 01/22/23 17:22 01/23/23 05:28 Labs: Abnormal Lab Results 01/23/23 01/22/23 05:28 17:54 Chloride 114 H Carbon Dioxide 20 L Calcium 8.4 L Ur Leukocyte Esterase 25 A Urine Mucus Few A Meds: Medications Acetaminophen (Acetaminophen 325 Mg Tablet) 650 mg PO Q6HP PRN; Protocol PRN Reason: Per Pain Protocol/Fever > 101 Last Admin: 01/23/23 08:37 Dose: 650 mg Hydrocodone Bitart/Acetaminophen (Hydrocodone/Apap 5/325mg Tablet) 1 tab PO Q4HP PRN; Protocol PRN Reason: Per Pain Protocol Last Admin: 01/24/23 22:11 Dose: 1 tab Albuterol/Ipratropium (Ipratropium/Albuterol 3 Ml Ampul.Neb) 3 ml NEB Q4HP PRN PRN Reason: Shortness Of Breath Aspirin (Aspirin 81 Mg Tab.Chew) 81 mg PO DAILY [facility] Last Admin: 01/25/23 08:56 Dose: 81 mg Atorvastatin Calcium (Atorvastatin 40 Mg Tablet) 80 mg PO HS [facility] Last Admin: 01/24/23 20:37 Dose: 80 mg Clopidogrel Bisulfate (Clopidogrel 75 Mg Tablet) 75 mg PO DAILY [facility] Last Admin: 01/25/23 08:57 Dose: 75 mg Docusate Sodium (Docusate Sodium 100 Mg Capsule) 100 mg PO BID [facility] Last Admin: 01/25/23 08:57 Dose: 100 mg Enoxaparin Sodium (Enoxaparin 40 Mg/0.4 Ml Syringe) 40 mg SQ DAILY [facility] Last Admin: 01/25/23 08:57 Dose: 40 mg Famotidine (Famotidine 20 Mg Tablet) 20 mg PO BID [facility] Last Admin: 01/25/23 08:56 Dose: 20 mg Potassium Chloride 40 meq/ (Dextrose) 520 mls @ 130 mls/hr IV UD PRN PRN Reason: Potassium < 3 Magnesium Sulfate (Magnesium Sulfate) 2 gm in 50 mls @ 50 mls/hr IV UD PRN PRN Reason: Magnesium </= 1.6 Lactobacillus Rhamnosus (Lactobacillus 1 Capsule) 1 cap PO DAILY [facility] Last Admin: 01/25/23 08:56 Dose: 1 cap Levothyroxine Sodium (Levothyroxine Sodium 112 Mcg Tablet) 168 mcg PO SuWe@0730 [facility] Last Admin: 01/25/23 08:12 Dose: 168 mcg Levothyroxine Sodium (Levothyroxine Sodium 112 Mcg Tablet) 112 mcg PO [id number]@0730 [facility] Loratadine (Loratadine 10 Mg Tablet) 10 mg PO DAILYP PRN PRN Reason: Allergic Symptoms Lorazepam (Lorazepam 2 Mg/Ml Vial) 0.5 mg IV Q6HP PRN PRN Reason: ANXIETY/SEDATION Lorazepam (Lorazepam 2 Mg/Ml Vial) 2 mg IV Q2HP PRN PRN Reason: Seizure Activity Ondansetron HCl (Ondansetron 4 Mg/2 Ml Vial) 4 mg IV Q4HP PRN PRN Reason: Nausea And Vomiting Zonisamide 100 Mg (Capsule) 1 dose PO HS [facility] Last Admin: 01/24/23 20:37 Dose: 1 dose Polyethylene Glycol (Polyethylene Glycol 3350 17 Gm Packet) 17 gm PO DAILYP PRN PRN Reason: Constipation Potassium Chloride (Potassium Chloride 20 Meq Tablet) 40 meq PO UD PRN PRN Reason: Potssium is 3-3.5 Last Admin: 01/23/23 10:46 Dose: 40 meq Potassium Chloride (Potassium Chloride 20 Meq Tablet) 40 meq PO UD PRN PRN Reason: Potassium < 3 Senna (Sennosides 1 Tablet) 2 tab PO DAILYP PRN PRN Reason: Constipation Sodium Chloride (0.9 % Sodium Chloride 10 Ml Syringe) 10 ml IV Q8 DAVID Last Admin: 01/25/23 08:57 Dose: 10 ml A/P Narrative A/P Narrative: Assessment: 82-year-old female with a history of seizure disorder admitted for left hemiparesis, work-up negative for acute stroke and the patient is now back to her baseline. The patient has had recurrent similar symptoms with varying d egrees of severity. Suspect the patient's symptoms may be caused by seizures. *Resolved strokelike symptoms, left-hemiparesis(Leg>Arm)/numbness: -MRI brain negative for acute stroke -Multiple recurrent episodes of varying severity. -Concern for possible seizures causing the patient's recurrent episodes. *Concern for possible paroxysmal atrial fibrillation *History of seizure: on zonisamide *Anxiety: prn ativan cont *Obesity: BMI 38, lifestyle modifications *Hypothyroidism: Continue levothyroxine *GERD: *Chronic pain: Hip and shoulder *Osteoporosis Plan: -Awaiting placement for low intensity rehab. -Continue DAPT. pt has been on daily asa 81mg, once DAPT period completed will keep plavix and stop asa -statin -athletic monitor. -cont home Atorvastatin, levothyroxine, Claritin, Pepcid, zonisamide, Ativan as needed for seizure activity. -PT/OT -CM for placement needs -ppx: lovenox / home H2 -Disposition: Currently inpatient MedSurg awaiting placement. Outpatient referral for neurology with Dr. Baird at [facility]. Outpatient referral for nurse monitoring placement to follow the patient for atrial fibrillation or atrial flutter. Time Spent With Patient Time: Total time spent is greater than 50% in coordination of care (as documented) at patient's floor/unit and/or counseling patient: QUALITY Stroke Onset of Symptoms Date: 01/21/23 Onset of Symptoms Time: 20:30 Symptom Onset Unknown: Yes VTE Deep Vein Thrombosis/Pulmonary Embolism Present on Admission: No
[2023-01-25] MEDS: LEVOTHYROXINE SODIUM 112 MCG TABLET PO SCH (15:57)
[2023-01-25] MEDS: LORazepam 1 MG TABLET PO PRN (17:54)
[2023-01-25] MEDS: ATORVASTATIN 40 MG TABLET PO SCH (20:35)
[2023-01-25] MEDS: HYDROcodone/APAP 5/325MG TABLET PO PRN (20:42)
[2023-01-25] MEDS ORDERED: LORazepam 1 MG TABLET PO SCH (21:00)
[2023-01-26] MEDS: 0.9 % SODIUM CHLORIDE 10 ML SYRINGE IV SCH (05:03)
[2023-01-26] MEDS ORDERED: LEVOTHYROXINE SODIUM 112 MCG TABLET PO SCH (07:30)
[2023-01-26] MEDS: LORazepam 1 MG TABLET PO PRN (07:50)
[2023-01-26] MEDS ORDERED: ONDANSETRON 4 MG ODT TABLET SL PRN (08:26)
[2023-01-26] MEDS: CLOPIDOGREL 75 MG TABLET PO SCH (09:02)
[2023-01-26] MEDS: DOCUSATE SODIUM 100 MG CAPSULE PO SCH ×2 (09:02→09:06)
[2023-01-26] MEDS: LACTOBACILLUS 1 CAPSULE PO SCH (09:02)
[2023-01-26] MEDS: ASPIRIN 81 MG TAB.CHEW PO SCH (09:02)
[2023-01-26] MEDS: ENOXAPARIN 40 MG/0.4 ML SYRINGE SQ SCH (09:03)
[2023-01-26] MEDS: FAMOTIDINE 20 MG TABLET PO SCH (09:03)
--- NOTE | 2023-01-26 13:38 | Internal Med Progress Note ---
SUBJECTIVE Subjective Patient information: Note initiated : 01/26/23 at 1:35 pm Service Date, if different from initiated Date: [] Patient: Heide Baez a 82 y/o F admitted on 01/22/23 for possible stroke- Left Hemiparesis Strokelike . Chief Complaint: [] Interval history: History of present illness: Ms. Baez is a 82 year old F Presents to the ED with left-sided weakness. Patient states that last night she developed tingling in her left side. It went mostly went away before bedtime. This morning she was coming down the stairs and she did mention to her daughter that she could hardly lift her left leg. Throughout the day it seems to become worse and as well as developing left arm weakness. she c/o numbess to Left side of face. No speech difficulty. she also complains of numbness on the inside of her cheek Per her daughter she has had mini strokes in the past that left her with short- term memory issues. She also complains of headaches and some nausea she does occasional diarrhea. She does say she did have some blurry vision at 1 point. No recent illnesses. Work-up in the ED revealed a normal vital signs. She had a CT of the head which showed atrophy bilateral frontal lobes and milder and temporal, and mild white matter chronic ischemic changes. EKG sinus. Case was discussed with stroke neurologist. 01/23 Patient states she had poor sleep last night. Has a bit of a headache. She feels her symptoms have mildly improved. Patient does states she does take aspirin daily. 01/24 Vital stable overnight, the patient's left-sided weakness has resolved. MRI brain from yesterday did not show acute stroke. The patient is back to her baseline. Awaiting placement at SNF for low intensity rehab. 01/25 Vitals stable overnight, review of telemetry shows short episodes of possible atrial fibrillation. Continuing cardiac cath tech and EKG if monitoring suggests atrial fibrillation. Will discharge the patient with a referral for a longer- term cardiac cath tech. Otherwise awaiting placement. 01/26 Vital stable overnight, review of telemetry again shows episodes of irregular heart rate. Suspect this represents atrial fibrillation. I discussed this with the patient and she commented that she was told she had atrial fibrillation while hospitalized in [place] years ago. Care conference held with the patient's daughter at bedside, in addition to discharge planning we discussed the risks and benefits of anticoagulation given her atrial fibrillation is a major risk factor for stroke. The patient said she would like to start anticoagulation atrial fibrillation, her daughter is in agreement. They are unsure if they would accept low intensity rehab, more likely to go home with home health instead but would like some time to think about it first. Started Eliquis for anticoagulation, discontinued aspirin and Plavix. Physical exam Head: Atraumatic, normal inspection. Eyes: normal appearance, no scleral icterus. Neck: full ROM Respiratory: no respiratory distress. Cardiovascular: normal rate and rhythm, S1, S2. GI/Abdominal: soft, nontender, no guarding. Extremities: full range of motion, nontender. Neurological: CN II-XII intact, intact motor, intact sensation. Psychiatric: normal mood. Skin: warm, normal color Constitutional Vitals: Vital Signs Temp Pulse Resp BP Pulse Ox O2 Del Method 98.1 F 61 12 122/54 100 Room Air 01/26/23 11:00 01/26/23 11:00 01/26/23 11:00 01/26/23 11:00 01/26/23 11:00 01/26/23 11:00 Period Temp Pulse Resp BP Sys/Alsotn Pulse Ox O2 Del Method O2 Flow Rate Last 24 Hr 98.0 F-98.7 F 49-80 12-16 122-132/54-78 96-100 Room Air-Room Air Intake and Output 01/26/23 01/26/23 01/26/23 03:59 11:59 19:59 Intake Total 480 1120 Output Total 550 1000 Balance -70 120 Weight 97.432 kg Intake & Output: Intake & Output 01/26/23 01/26/23 01/26/23 03:59 11:59 19:59 Intake Total 480 1120 Output Total 550 1000 Balance -70 120 Weight 97.432 kg Intake: Oral 480 1120 Output: Void Amount 550 1000 Other: Meal Breakfast Percent of Meal Consumed Bites Feeding Ability Independent Urine Appearance Clear Clear Urine Color Yellow Yellow Urine Odor Normal Normal Stool Size Moderate Stool Color Brown Stool Consistency Liquid Loose # Bowel Movements 1 OBJ DATA Labs 01/22/23 17:22 01/23/23 05:28 Meds: Medications Acetaminophen (Acetaminophen 325 Mg Tablet) 650 mg PO Q6HP PRN; Protocol PRN Reason: Per Pain Protocol/Fever > 101 Last Admin: 01/23/23 08:37 Dose: 650 mg Hydrocodone Bitart/Acetaminophen (Hydrocodone/Apap 5/325mg Tablet) 1 tab PO Q4HP PRN; Protocol PRN Reason: Per Pain Protocol Last Admin: 01/25/23 20:42 Dose: 1 tab Albuterol/Ipratropium (Ipratropium/Albuterol 3 Ml Ampul.Neb) 3 ml NEB Q4HP PRN PRN Reason: Shortness Of Breath Apixaban (Apixaban 5 Mg Tablet) 5 mg PO BID [facility] Atorvastatin Calcium (Atorvastatin 40 Mg Tablet) 80 mg PO [facility] Last Admin: 01/25/23 20:35 Dose: 80 mg Docusate Sodium (Docusate Sodium 100 Mg Capsule) 100 mg PO BID [facility] Last Admin: 01/26/23 09:06 Dose: Not Given Famotidine (Famotidine 20 Mg Tablet) 20 mg PO BID [facility] Last Admin: 01/26/23 09:03 Dose: 20 mg Potassium Chloride 40 meq/ (Dextrose) 520 mls @ 130 mls/hr IV UD PRN PRN Reason: Potassium < 3 Magnesium Sulfate (Magnesium Sulfate) 2 gm in 50 mls @ 50 mls/hr IV UD PRN PRN Reason: Magnesium </= 1.6 Lactobacillus Rhamnosus (Lactobacillus 1 Capsule) 1 cap PO DAILY [facility] Last Admin: 01/26/23 09:02 Dose: 1 cap Levothyroxine Sodium (Levothyroxine Sodium 112 Mcg Tablet) 168 mcg PO [id number] [facility] Last Admin: 01/25/23 08:12 Dose: 168 mcg Levothyroxine Sodium (Levothyroxine Sodium 112 Mcg Tablet) 112 mcg PO [id number] [facility] Last Admin: 01/26/23 07:47 Dose: 112 mcg Loratadine (Loratadine 10 Mg Tablet) 10 mg PO DAILYP PRN PRN Reason: Allergic Symptoms Lorazepam (Lorazepam 1 Mg Tablet) 1 mg PO BIDP PRN PRN Reason: ANXIETY/SEDATION Last Admin: 01/26/23 07:50 Dose: 1 mg Ondansetron HCl (Ondansetron 4 Mg/2 Ml Vial) 4 mg IV Q4HP PRN PRN Reason: Nausea And Vomiting Ondansetron HCl (Ondansetron 4 Mg Odt Tablet) 4 mg SL Q4HP PRN PRN Reason: Nausea And Vomiting Zonisamide 100 Mg (Capsule) 1 dose PO HS DAVID Last Admin: 01/25/23 20:35 Dose: 1 dose Polyethylene Glycol (Polyethylene Glycol 3350 17 Gm Packet) 17 gm PO DAILYP PRN PRN Reason: Constipation Potassium Chloride (Potassium Chloride 20 Meq Tablet) 40 meq PO UD PRN PRN Reason: Potssium is 3-3.5 Last Admin: 01/23/23 10:46 Dose: 40 meq Potassium Chloride (Potassium Chloride 20 Meq Tablet) 40 meq PO UD PRN PRN Reason: Potassium < 3 Senna (Sennosides 1 Tablet) 2 tab PO DAILYP PRN PRN Reason: Constipation Sodium Chloride (0.9 % Sodium Chloride 10 Ml Syringe) 10 ml IV Q8 DAVID Last Admin: 01/26/23 05:03 Dose: Not Given A/P Narrative A/P Narrative: Assessment: 82-year-old female with a history of seizure disorder admitted for left hemiparesis, work-up negative for acute stroke and the patient is now back to her baseline. The patient has had recurrent similar symptoms with varying degrees of severity. Suspect the patient's symptoms may be caused by seizures. *Resolved strokelike symptoms, left-hemiparesis(Leg>Arm)/numbness: -MRI brain negative for acute stroke -Multiple recurrent episodes of varying severity. -Concern for possible seizures causing the patient's recurrent episodes. *Paroxysmal atrial fibrillation *History of seizure: on zonisamide *Anxiety: prn ativan cont *Obesity: BMI 38, lifestyle modifications *Hypothyroidism: Continue levothyroxine *GERD: *Chronic pain: Hip and shoulder *Osteoporosis Plan: -Awaiting placement for low intensity rehab. -Start Eliquis 5 mg twice daily for atrial fibrillation anticoagulation. -Discontinue aspirin and Plavix. -Continue atorvastatin. -quality assurance monitor. -Continue home levothyroxine, Claritin, Pepcid, zonisamide, Ativan as needed for seizure activity. -PT/OT -CM for placement needs -ppx: lovenox / home H2 -Disposition: Currently inpatient MedSurg awaiting placement, discharge disposition will probably be home with home health. Outpatient referral for neurology with Dr. Baird at [facility]. Time Spent With Patient Time: Total time spent is greater than 50% in coordination of care (as documented) at patient's floor/unit and/or counseling patient: QUALITY Stroke Onset of Symptoms Date: 01/21/23 Onset of Symptoms Time: 20:30 Symptom Onset Unknown: Yes VTE Deep Vein Thrombosis/Pulmonary Embolism Present on Admission: No
--- NOTE | 2023-01-26 14:00 | Discharge Summary ---
Discharge Provider Provider IMPORTANT FOLLOW-UP INFORMATION FOR PCP: Patient information: Note initiated : 01/26/23 at 1:57 pm Service Date, if different from initiated Date: [] Patient: Heide Baez a 82 y/o F admitted on 01/22/23 for possible stroke- Left Hemiparesis Strokelike . Chief Complaint: [] Date of admission: 01/22/23 20:52 Discharge date: 01/26/23 Primary care physician: Darline Grimaldo Consults: 01/22/23 Consult to Physician [CONS] Stat Comment: Consulting Provider: Gio Garner Reason For Exam: Physician to Consult 01/22/23 16:23 Consult to Physician [CONS] Stat Comment: Consulting Provider: [facility] Reason For Exam: Physician to Consult COURSE Hospital Course Hospital course: Ms. Baez is a 82 year old F Presents to the ED with left-sided weakness. Patient states that last night she developed tingling in her left side. It went mostly went away before bedtime. This morning she was coming down the stairs and she did mention to her daughter that she could hardly lift her left leg. Throughout the day it seems to become worse and as well as developing left arm weakness. she c/o numbess to Left side of face. No speech difficulty. she also complains of numbness on the inside of her cheek Per her daughter she has had mini strokes in the past that left her with short- term memory issues. She also complains of headaches and some nausea she does occasional diarrhea. She does say she did have some blurry vision at 1 point. No recent illnesses. Work-up in the ED revealed a normal vital signs. She had a CT of the head which showed atrophy bilateral frontal lobes and milder and temporal, and mild white matter chronic ischemic changes. EKG sinus. Case was discussed with stroke neurologist. 01/23 Patient states she had poor sleep last night. Has a bit of a headache. She feels her symptoms have mildly improved. Patient does states she does take aspirin daily. 01/24 Vital stable overnight, the patient's left-sided weakness has resolved. MRI brain from yesterday did not show acute stroke. The patient is back to her baseline. Awaiting placement at SNF for low intensity rehab. 01/25 Vitals stable overnight, review of telemetry shows short episodes of possible atrial fibrillation. Continuing surgical attendant and EKG if monitoring suggests atrial fibrillation. Will discharge the patient with a referral for a longer- term surgical attendant. Otherwise awaiting placement. 01/26 Vital stable overnight, review of telemetry again shows episodes of irregular heart rate. Suspect this represents atrial fibrillation. I discussed this with the patient and she commented that she was told she had atrial fibrillation while hospitalized in [place] years ago. Care conference held with the patient's daughter at bedside, in addition to discharge planning we discussed the risks and benefits of anticoagulation given her atrial fibrillation is a major risk factor for stroke. The patient said she would like to start anticoagulation atrial fibrillation, her daughter was in agreement. Eliquis 5 mg twice daily started for atrial fibrillation anticoagulation. Antiplatelets discontinued. The patient was excepted for low intensity rehab at a local detention facility. She was discharged to the detention facility. A referral was placed for the patient to follow-up with neurology as there is concern that the patient's recurrent episodes of left-sided weakness may be related to her recurrent seizures. Physical exam Head: Atraumatic, normal inspection. Eyes: normal appearance, no scleral icterus. Neck: full ROM Respiratory: no respiratory distress. Cardiovascular: normal rate and rhythm, S1, S2. GI/Abdominal: soft, nontender, no guarding. Extremities: full range of motion, nontender. Neurological: CN II-XII intact, intact motor, intact sensation. Psychiatric: normal mood. Skin: warm, normal color Discharge diagnosis: Resolved left hemiparesis possibly secondary to Ben's paralysis Secondary discharge diagnosis: Seizure disorder with recurrent seizures and concern for Ben's paralysis Paroxysmal atrial fibrillation Time Spent with Patient Time attestation: Total time spent providing and/or coordinating discharge services: Time spent: Greater than 30 minutes EXAM Constitutional Vitals: Temp Pulse Resp BP Pulse Ox O2 Del Method 98.1 F 61 12 122/54 100 Room Air 01/26/23 11:01/26/23 11:01/26/23 11:01/26/23 11:01/26/23 11:01/26/23 11:00 Discharge Plan Patient/Caregiver Discharge Instructions Activity: as per physical therapy Diet: Regular Diet Activity Restrictions/Additional Instructions: Resume home diet as tolerated. Take all meals up in chair, sitting at 90 degrees, to prevent aspiration. Increase activity as tolerated. Continue fall precautions. Continue aggressive bowel regimen to prevent constipation. Take all medication as directed. Your prescription is with your discharge paperwork. Pain medication can cause constipation; take an over the counter stool softener and/or laxative while on pain medication. Some medications were electronically transmitted to pharmacy Take your prescription, insurance cards, and photo ID to forklift picker your medication. Return to ER for fever, chills, uncontrolled pain, inability to urinate or have a bowel movement, nausea and/or vomiting, swelling, redness, signs of infection, shortness of breath, chest pain, return of symptoms, or other acute symptom. Referral to see neurologist in 5 to 14 days, ?Ben's paralysis episode. has h/o seizures and is trying to establish with a neurologist. Prescriptions: New Eliquis 5 mg Tablet 5 mg PO BID Qty: 90 6RF Continued zonisamide 100 mg capsule 300 mg PO QPM alendronate 70 mg tablet 70 mg PO WEEKLY levothyroxine 112 mcg tablet 112 mcg PO DAILY Rx Instructions: Take 1 tablet by mouth once a day 5 days a week. take 1.5 tabs on Sundays and Wednesdays only furosemide 20 mg tablet 40 mg PO QDAY lorazepam 0.5 mg tablet 1 mg PO BIDP PRN (Reason: Anxiety) cholecalciferol (vitamin D3) [Vitamin D3] 25 mcg (1,000 unit) tablet 25 mcg PO BID calcium carbonate [Calcium 600] 600 mg calcium (1,500 mg) tablet 600 mg PO BID atorvastatin 40 mg tablet 40 mg PO QDAY famotidine 20 mg tablet 20 mg PO BID hydrocodone-acetaminophen 5-325 mg tablet 1 tab PO Q4HP PRN (Reason: Pain) Probiotic 10 billion cell capsule 10,000,000,000 cell PO QDAY loratadine [Claritin] 10 mg Tablet 10 mg PO QDAY acetaminophen [Acetaminophen Extra Strength] 500 mg Tablet 1,000 mg PO Q6HP PRN (Reason: Pain) Discontinued aspirin [Adult Low Dose Aspirin] 81 mg tablet,delayed release (DR/EC) 81 mg PO QDAY Other Ambulatory Orders: OT Discharge Order (Routine) Location: None Selected Ordered By: Douglas Platt Physical Therapy at Discharge - General (Routine) Location: None Selected Ordered By: Douglas Platt ST Discharge Order (Routine) Location: None Selected Ordered By: Douglas Platt Follow Up Plan Follow up with: Darline Grimaldo ARNP [Primary Care Provider] - Patient Disposition: Xfer SNF Rehab Potential: Fair I certify that the patient requires SNF services: Yes Overall status at discharge: patient is progressing back to baseline Discharge Orders: Discharge Order (Routine); Ordered 01/26/23 Ordered By: Douglas Platt QUALITY VTE Deep Vein Thrombosis/Pulmonary Embolism Present on Admission: No
[2023-01-26] MEDS ORDERED: APIXABAN 5 MG TABLET PO SCH (21:00)
== END 2023-01-26 14:20 | DRG 57 ==
LOC: ED 16:10 → ICU 20:52
PROVIDERS: ADMIT Internal Medicine; ATTEND Internal Medicine